=== PATIENT | female | born 1960 | race Caucasian/White ===

== ENCOUNTER 2016-11-28 06:45 | Day surgery (SDC) | payer BC ==
[~2016-11-28] VITALS: Ht 157.5 cm; Wt 68.7 kg
[2016-11-28 07:22] VITALS: Ht 157.5 cm; Wt 68.7 kg
[2016-11-28] MEDS ORDERED: AMLO-145 PO (07:28)
[2016-11-28] MEDS ORDERED: RANI-347 PO (07:28)
[2016-11-28] MEDS ORDERED: FOLI-49 PO (07:28)
[2016-11-28] MEDS ORDERED: AZEL137S9 NASAL (07:28)
[2016-11-28] MEDS ORDERED: BENA10TA48 PO (07:28)
[2016-11-28] MEDS ORDERED: HYDR200T39 PO (07:28)
[2016-11-28] MEDS ORDERED: FER325 PO (07:28)
[2016-11-28] MEDS ORDERED: ESOM20SU PO (07:28)
[2016-11-28] MEDS ORDERED: CALC-385 PO (07:28)
[2016-11-28] MEDS ORDERED: MONT10TA24 PO (07:28)
[2016-11-28] MEDS ORDERED: LEVO50TA74 PO (07:28)
[2016-11-28 07:56] VITALS: BP 153/73; PULSE 78; RESP 18
[2016-11-28] MEDS ORDERED: LIDOCAINE 4% SOLUTION 50 ML BTL ONE (08:02)
[2016-11-28 08:56] VITALS: BP 125/74; RESP 12
[2016-11-28] MEDS ORDERED: FENTAnyl 50 MCG/ML VIAL ONE ×2 (10:22→10:26)
[2016-11-28] MEDS ORDERED: MIDAZOLAM 1 MG/ML 2 ML INJ ONE ×2 (10:22)
--- NOTE | 2016-11-28 11:39 | GILP ---
DATE OF PROCEDURE: 11/28/2016 PROCEDURE PERFORMED: Esophagogastroduodenoscopy. PREOP DIAGNOSIS: The patient presenting with history of chronic heartburn, chronic intermittent dyspepsia, difficulty in swallowing at times, rule out esophagitis, rule out esophageal ulcer. POSTOP DIAGNOSES: 1. Small distal esophageal ulcers, erosive distal esophagitis. 2. Erosive gastritis of the antrum and the fundus. Biopsies were done as follows. DESCRIPTION OF PROCEDURE: After informed written consent is obtained. Patient was asked to lay on the left lateral side. Intravenous anesthesia was given, which included 3 mg Versed and 50 mcg of fentanyl. When the patient became somnolent an Olympus video upper endoscope was introduced into the oropharynx and then into the esophagus. Esophagus showed a small 3 mm ulcer just above the GE junction. A few linear erosions were noted from the GE junction and [____]. Multiple biopsies and photographs were obtained to rule out Quinones's esophagus. The scope at this time was advanced into the stomach. Stomach showed evidence of erosions in the antrum. Also few erosions noted in the fundus of the stomach. Biopsies were done from the antrum, the lesser curvature and the fundus to rule out H pylori infection. The mucosa of the duodenum showed evidence of a whitish, grayish type of mucosal surface. Rule out opportunistic infections and hence biopsies were done. At this time mucosa of the duodenum was examined up to the end of the 3rd portion. Endoscope at this time was withdrawn and the procedure was terminated. PLAN: Recommend proton pump inhibitor therapy and currently she is on Nexium and this can be increased to 40 mg twice a day. Dictated By: Dennis Tripp MD /[email or web address] /Document#: [id number] CC: Jean-Claude Chacon MD;*EndCC*
== END 2016-11-28 12:29 | disposition home or self-care (01) ==
LOC: GIL 06:45
PROVIDERS: ATTEND Internal Medicine Gastroenterology
DX: K21.0 Gastro-esophageal reflux disease with esophagitis (principal); K29.50 Unspecified chronic gastritis without bleeding; K22.10 Ulcer of esophagus without bleeding
CPT/HCPCS: 43239; 88305; 88312; 88313; J2250; J3010; Z7610